=== PATIENT | female | born 1975 | race Caucasian/White ===

== ENCOUNTER 2017-06-06 00:15 | Observation (INO) | payer OTHER ==
[2017-06-06] VITALS (12 sets, daily range): BP systolic 104–132; BP diastolic 52–76; PULSE 62–87; TEMP 97.6–99.1
[~2017-06-06] VITALS: Ht 165.1 cm; Wt 73.7 kg
[2017-06-06 00:57] LABS: BASO # 0.1 (0.0-0.2); BASO % 0.7 % (0.0-2.0); EOS # 0.2 (0.0-0.7); EOS % 1.5 % (0-4.0); GRAN # 12.3 (1.4-6.5); LYMPH # 1.8 (1.2-3.4); LYMPH % 11.8 % (20.0-51.0); MEAN CELL VOLUME 85 fl (80.0-100.0); MEAN CORPUSCULAR HGB CONC 32 g/dl (33.0-37.0); MEAN PLATELET VOLUME 10.4 fl (7.4-10.4); MONO # 0.6 (0.1-0.6); MONO % 3.7 % (1.7-9.3); PLATELET COUNT 246 K/mm3 (130-400); RED BLOOD COUNT 4.29 M/mm3 (4.10-5.30); REDCELL DISTRIBUTION WIDTH-CV 14.6 % (11.5-14.5)
[2017-06-06 00:58] LABS: HEMATOCRIT 36.4 % (37.0-47.0); HEMOGLOBIN 11.7 g/dl (12.5-16.0); MEAN CORPUSCULAR HEMOGLOBIN 27 pg (27.0-31.0)
[2017-06-06 01:08] LABS: ADJUSTED CALCIUM 8.8 mg/dL (8.4-10.2); ALBUMIN 4.5 gm/dL (3.5-5.0); BILIRUBIN,TOTAL 0.4 mg/dL (0.0-1.0); CALCIUM 9.2 mg/dL (8.4-10.2); CREATININE, serum 0.73 mg/dL (0.52-1.25); POTASSIUM 3.7 mmol/L (3.4-5.0); TOTAL PROTEIN 7.8 gm/dL (6.4-8.2)
[2017-06-07 01:31] VITALS: BP 128/59; PULSE 69; TEMP 97.9
[2017-06-07 05:20] VITALS: BP 106/58; PULSE 69; TEMP 97.6
[2017-06-07 09:00] VITALS: BP 114/64; PULSE 76; TEMP 98.1
[2017-06-07] MEDS ORDERED: NORCO 325 MG-51 TAB PO (09:54)
== END 2017-06-07 11:45 | disposition home or self-care (01) ==
LOC: COL.ER 00:15 → SURG 02:00
PROVIDERS: Emergency Medicine
DX: K80.12 Calculus of gallbladder with acute and chronic cholecystitis without obstruction (principal); Z87.442 Personal history of urinary calculi
CPT/HCPCS: G0378; J1956; J2270; J2405; J2704; J2765; J3010; J7030; J7120; Q9967